=== PATIENT | male | born 1950 | race Caucasian/White ===

== ENCOUNTER 2024-07-23 14:38 | Emergency (ER) | payer MEDICARE, SELFPAY ==
[2024-07-23 14:45] VITALS: BP 150/75; PULSE 104; RESP 17; TEMP 37.1; BMI 28.1
--- NOTE | 2024-07-23 14:45 | ECG_ITS ---
[facility] Pat Name: Eugenio Concepcion Department: Room: Gender: Male Job [employer]ter: : 1950 Requested By: Pradeep Hernandez Order Number: [id number] Dayana MD: Isabelle Medeiros M.D. Measurements Intervals Holmes Rate: 103 P: 62 OK: 157 QRS: 28 QRSD: 97 T: 160 QT: 328 QTc: 431 Interpretive Statements SINUS TACHYCARDIA POSSIBLE LEFT ATRIAL ENLARGEMENT MODERATE T-WAVE ABNORMALITY, CONSIDER LATERAL ISCHEMIA [-0.1+ mV T-WAVE IN I/aVL/V5/V6] No previous ECG available for comparison Electronically Signed On 07-25-2024 12:10:53 CDT by Isabelle Medeiros M.D. [id number]
--- NOTE | 2024-07-23 15:06 | PC.NURSE ---
THIS NURSE WAS LETTING SOMEONE OUT OF THE TRIAGE ROOM WHEN SHE NOTICED PT TAKING OFF OXYGEN AND STANDING UP TO LEAVE. THIS NURSE ASKED PT WHERE HE WAS GOING. PT STATED YOU ALL HAVE BEEN NICE, BUT I NEED TO FIND A DOCTOR WHO WILL HELP MY PAIN. THIS NURSE INFORMED PT THAT THERE WAS NOT A ROOM OPEN AT THIS TIME BUT WE RECOMMENDED THAT PT STAY TO BE TREATED SINCE HE WAS ALREADY HERE AND HAD ONLY BEEN WAITING FOR 27 MINUTES. PT VERBALIZED UNDERSTANDING BUT CONTINUED TO STATE THAT HE NEEDED TO FIND A DOCTOR THAT WOULD GET HIS PAIN UNDER CONTROL. THIS NURSE EDUCATED PT AGAIN THAT WE RECOMMENDED PT STAY AND BE TREATED BUT PT STATED HE WANTED TO LEAVE. THIS NURSE INFORMED PT THAT SHE COULD NOT MAKE HIM STAY, BUT THAT WE RECOMMENDED TREATMENT AGAIN. PT AMBULATED OUT TO VEHICLE AND LEFT WITHOUT BEING SEEN.
== END 2024-07-23 15:10 | disposition left against medical advice (07) ==
LOC: ER 14:48
PROVIDERS: Emergency Provider Family Medicine
DX: R00.0 Tachycardia, unspecified (principal); R94.31 Abnormal electrocardiogram [ECG] [EKG]
CPT/HCPCS: 93005